=== PATIENT | male | born 1995 | race Caucasian/White ===

== ENCOUNTER 2024-02-01 19:43 | Emergency (ER) | payer OTHER ==
--- NOTE | 2024-02-01 20:04 | ED ---
Upper Extremity HPI - General Stated Complaint: R finger laceration Time Seen by Provider: 02/01/24 20:04 Source: patient, RN notes reviewed Mode of arrival: ambulatory Limitations: no limitations - History of Present Illness Initial Comments: 28-year-old male presented to the ER with a chief complaint of right hand injury. Patient states yesterday he accidentally dropped a trailer hitch on his right hand. Patient is reporting most pain to fourth digit. He states his fourth nailbed was bleeding all day yesterday. He is reporting mild pain to fifth digit. No other injuries. Patient's tetanus is not up-to-date. No other complaints. Patient reports he is prescribed tramadol for pain control at home. - Related Data Previous Rx's Medication Instructions Recorded Cephalexin [Keflex] 500 mg PO Q6HR 1 Days #4 cap 02/01/24 Allergies Allergy/AdvReac Type Severity Reaction Status Date / Time ibuprofen [From Motrin] AdvReac Nausea & Verified 02/01/24 21:01 Vomiting & Diarrhea Review of Systems ROS Statement: Those systems with pertinent positive or pertinent negative responses have been documented in the HPI. ROS Other: All systems not noted in ROS Statement are negative. General Exam - General Exam Comments Initial Comments: Visual Physical Exam Vital signs reviewed General: Well-appearing, nontoxic, no acute distress. Head: Normocephalic, atraumatic Eyes: PERRLA, EOMI ENT: Airway patent Chest: Nonlabored breathing Skin: No visual rash, normal skin tone Neuro: Alert and oriented 3 Musculoskeletal: No gross abnormalities Limitations: no limitations General appearance: alert, in no apparent distress Respiratory exam: Present: normal lung sounds bilaterally. Absent: respiratory distress, wheezes, rales, rhonchi, stridor Cardiovascular Exam: Present: regular rate, normal rhythm, normal heart sounds. Absent: systolic murmur, diastolic murmur, rubs, gallop, clicks Extremities exam: Present: tenderness (Right fourth DIP joint and distal end. There is an overlying dried blood. Patient is limited range of motion due to pain. No anatomical snuffbox tenderness. 2+ right radial pulse. Sensation intact.) Neurological exam: Present: alert, oriented X3, CN II-XII intact Skin exam: Present: warm, dry, intact, normal color. Absent: rash Course Vital Signs 02/01/24 02/01/24 20:57 21:42 Temperature 98.8 F 98.1 F Pulse Rate 68 71 Respiratory 18 18 Rate Blood Pressure 126/75 126/71 O2 Sat by Pulse 96 97 Oximetry Medical Decision Making - Medical Decision Making I performed the quick note portion of this chart. Electronically signed by Simona Harrington PA-C Was pt. sent in by a medical professional or institution ([facility], [employer], urgent care, hospital, or group home...) When possible be specific @ -No Did you speak to anyone other than the patient for history (EMS, parent, family, police, friend...)? What history was obtained from this source @ -No Did you review nursing and triage notes (agree or disagree)? Why? @ -I reviewed and agree with nursing and triage notes Were old charts reviewed (outside hosp., previous admission, EMS record, old EKG, old radiological studies, urgent care reports/EKG's, group home records)? Report findings @ -No old charts were reviewed Differential Diagnosis (chest pain, altered mental status, abdominal pain women, abdominal pain men, vaginal bleeding, weakness, fever, dyspnea, syncope, headache, dizziness, GI bleed, back pain, seizure, CVA, palpatations, mental health, musculoskeletal)? @ -Differential Musculoskeletal: Muscular strain, contusion, ligament sprain, fracture, arthritis, septic arthritis, bursitis, cellulitis, muscle spasm, nerve compression, DVT, arterial occlusion, herpes zoster, electrolyte abnormality, tumor.... This is not meant to be in all inclusive list EKG interpreted by me (3pts min.). @ -None done X-rays interpreted by me (1pt min.). @ -Right hand x-ray showing a tuft fracture of the fourth digit distal phalanx with mild displacement. Associated soft tissue swelling. CT interpreted by me (1pt min.). @ -None done U/S interpreted by me (1pt. min.). @ -None done What testing was considered but not performed or refused? (CT, X-rays, U/S, labs)? Why? @ -None What meds were considered but not given or refused? Why? @ -Patient refused analgesic medications as he takes tramadol at home. Did you discuss the management of the patient with other professionals (professionals i.e. Dr., PA, [employer], lab, RT, psych nurse, 7th grade social studies teacher, felt hat inspector and packer, teacher, promotions officer, assistant case manager)? Give summary @ -No Was smoking cessation discussed for >3mins.? @ -No Was critical care preformed (if so, how long)? @ -No Were there social determinants of health that impacted care today? How? (Homelessness, low income, unemployed, alcoholism, drug addiction, transportation, low edu. Level, literacy, decrease access to med. care, custodial, rehab)? @ -No Was there de-escalation of care discussed even if they declined (Discuss DNR or withdrawal of care, Hospice)? DNR status @ -No What co-morbidities impacted this encounter? (DM, HTN, Smoking, COPD, CAD, Cancer, CVA, ARF, Chemo, Hep., AIDS, mental health diagnosis, sleep apnea, morbid obesity)? @ -None Was patient admitted / discharged? Hospital course, mention meds given and route, prescriptions, significant lab abnormalities, going to OR and other pertinent info. @ -Discharge. 28-year-old male presented to the ER with a chief complaint of right hand injury. History and physical exam completed. Vitals within normal limits. Patient in no signs of acute distress. Right upper extremity neurovascular intact. There is tenderness to right fourth digit DIP joint. There is overlying dried blood with blood clot in place. Patient has limited range of motion due to pain. Brisk cap refill. No anatomical snuffbox tenderness. No other focal bony tenderness. X-rays will be obtained and wound will be cleaned with iodine, patient is agreeable. X-ray showing a tuft fracture of the right fourth digit distal phalanx with mild displacement. Due to overlying skin abnormality there is concern of an open fracture. Patient received IM Ancef prior to discharge and will be started on Keflex. Finger splint placed. Tetanus updated. Advise close follow-up with orthopedics, referral given. Strict return parameters discussed. Patient discharged in stable condition with follow-up to orthopedics. Patient verbally expressed understanding and agreement with care plan. Case discussed with ED attending, Dr. Mayberry. Undiagnosed new problem with uncertain prognosis? @ -No Drug Therapy requiring intensive monitoring for toxicity (Heparin, Nitro, In sulin, Cardizem)? @ -No Were any procedures done? @ -No Diagnosis/symptom? @ -Open fracture/tuft fracture Acute, or Chronic, or Acute on Chronic? @ -Acute Uncomplicated (without systemic symptoms) or Complicated (systemic symptoms)? @ -Uncomplicated Side effects of treatment? @ -No Exacerbation, Progression, or Severe Exacerbation? @ -No Poses a threat to life or bodily function? How? (Chest pain, [place], [place], pneumonia, PE, COPD, DKA, ARF, appy, cholecystitis, CVA, Diverticulitis, Homicidal, Suicidal, threat to staff... and all critical care pts) @ -Yes, open fractures can lead to osteomyelitis. Osteomyelitis can lead to sepsis and endorgan dysfunction. - Radiology Data Radiology results: report reviewed, image reviewed Disposition Clinical Impression: Open fracture of finger, distal phalanx Disposition: HOME SELF-CARE Condition: Stable Instructions (If sedation given, give patient instructions): Finger Fracture (ED) Additional Instructions: Complete full course of Keflex. Follow-up with orthopedics. Return to the ER for any new or worsening concerns. You may take [id number] Tylenol and your prescribed tramadol for pain control. Prescriptions: Cephalexin [Keflex] 500 mg PO Q6HR 1 Days #4 cap Is patient prescribed a controlled substance at d/c from ED?: No Referrals: None,Stated [Primary Care Provider] - 1-2 days Collins Hull MD [STAFF PHYSICIAN] - 1-2 days Time of Disposition: 21:28
--- NOTE | 2024-02-01 20:53 | XR ---
EXAMINATION TYPE: XR hand complete RT DATE OF EXAM: 02/01/2024 8:29 PM CLINICAL INDICATION: Male, 28 years old with history of crushed by trailer hitch; H COMPARISON: None TECHNIQUE: XR hand complete RT Frontal, lateral and oblique views were obtained. FINDINGS/IMPRESSION: Tuft fracture of the fourth digit distal phalanx with mild displacement. Associated soft tissue swell ing. [facility], , 02/01/2024 8:51 PM
[2024-02-01 21:01] VITALS: RESP 18
[2024-02-01] MEDS: DIPH,PERTUS(ACELL)TETVAC-LF 0.5 ML VIAL IM ONE (21:27)
[2024-02-01] MEDS: ceFAZolin 1,000 MG VIAL (IM USE) IM STA (21:27)
[2024-02-01 21:43] VITALS: BP 126/71; PULSE 71; TEMP 98.1
== END 2024-02-01 21:46 | disposition home or self-care (01) ==
LOC: EC 19:43
CPT/HCPCS: 90471; 90715; 96372; 99283